=== PATIENT | male | born 1940 | race Caucasian/White ===

== ENCOUNTER 2017-07-20 13:12 | Inpatient (IN) | payer BC ==
[~2017-07-20] VITALS: Ht 180.3 cm; Wt 86.4 kg
[2017-07-20 14:48] LABS: Alanine Aminotransferase 20 U/L (16-61); Albumin 2.4 g/dL (3.4-5.0); Alkaline Phosphatase 66 U/L (45-117); Anion Gap 6 (5-15); Aspartate Aminotransferase 17 U/L (15-37); BUN/Creatinine Ratio 20.3; Bilirubin, Total < 0.1 mg/dL (0.2-1.0); Blood Urea Nitrogen 30 mg/dL (7-18); Calcium 8.2 mg/dL (8.5-10.1); Carbon Dioxide 25 mmol/L (21-32); Chloride 104 mmol/L (98-107); GFR African American 59 mL/min; GFR Non-African American 49 mL/min; Glucose 89 mg/dL (74-106); Potassium 4.4 mmol/L (3.5-5.1); Sodium 135 mmol/L (136-145); Total Protein 13.4 g/dL (6.4-8.2)
[2017-07-20 14:52] LABS: Platelet Count (auto) 192 10^3/uL (140-450)
[2017-07-20 14:54] LABS: Mean Corpuscular Hemoglobin 29.1 pg (28.0-32.0); Mean Corpuscular Hgb Conc. 33.4 g/dL (32.0-36.0); Mean Corpuscular Volume 87.2 fL (80.0-100.0); Red Blood Cells 2.75 10^6/uL (4.5-5.90); White Blood Cell 5.5 10^3/uL (4.4-10.8)
[2017-07-20 15:19] LABS: Band Neutrophils % (manual) 0; Basophils % (manual) 0 (0.0-2.0); Blast Cells 0; Metamyelocytes % 0; Myelocytes % 0; Promyelocytes % 0; Reactive Lymphocytes 0
[2017-07-20 15:49] LABS: Eosinophils % (manual) 1 (0-7); Lymphocytes % (manual) 43 (10.0-50.0); Monocytes % (manual) 12 (0-12)
[2017-07-20 19:50] VITALS: BP 115/62
[2017-07-20 20:05] VITALS: BP 121/65
[2017-07-20] MEDS ORDERED: ONDANSETRON HCL 4 MG/2 ML VIAL IV PRN (21:00)
[2017-07-20] MEDS ORDERED: TEMAZEPAM 15 MG CAP PO PRN (21:00)
[2017-07-20] MEDS ORDERED: HYDROcodone-ACET 5/325MG TAB PO PRN (21:00)
[2017-07-20] MEDS ORDERED: ACETAMINOPHEN 500 MG TAB PO PRN (21:00)
[2017-07-20] MEDS: TAMSULOSIN HYDROCHLORIDE 0.4 MG CAP PO SCH (21:11)
[2017-07-20 21:22] VITALS: BP 128/71
[2017-07-20 22:30] VITALS: BP 135/81
[2017-07-21] VITALS (7 sets, daily range): BP systolic 102–147; BP diastolic 50–81
[2017-07-21] MEDS ORDERED: FER325T PO (00:07)
[2017-07-21] MEDS ORDERED: MULTCAP45 PO (00:07)
[2017-07-21] MEDS ORDERED: TAM04C PO (00:07)
[2017-07-21 07:39] LABS: Hemoglobin 8.2 g/dL (13.5-17.5); Mean Corpuscular Volume 87.1 fL (80.0-100.0); White Blood Cell 4.1 10^3/uL (4.4-10.8)
[2017-07-21 07:41] LABS: Hematocrit 24.7 % (41.0-53.0); Mean Corpuscular Hemoglobin 28.9 pg (28.0-32.0); Mean Corpuscular Hgb Conc. 33.2 g/dL (32.0-36.0); Platelet Count (auto) 171 10^3/uL (140-450); Red Blood Cells 2.84 10^6/uL (4.5-5.90); Red Cell Distribution Width 15.4 % (11.8-14.3)
[2017-07-21 07:50] LABS: Calcium 7.9 mg/dL (8.5-10.1); Potassium 4.2 mmol/L (3.5-5.1)
[2017-07-21 07:54] LABS: Basophils % (manual) 0 (0.0-2.0); Blast Cells 0; Metamyelocytes % 0; Myelocytes % 0; Promyelocytes % 0; Reactive Lymphocytes 0
[2017-07-21 09:01] LABS: Band Neutrophils % (manual) 4; Lymphocytes % (manual) 45 (10.0-50.0); Monocytes % (manual) 13 (0-12)
[2017-07-21 09:02] LABS: Eosinophils % (manual) 3 (0-7)
[2017-07-21] MEDS: FERROUS SULFATE 325 MG TAB PO SCH ×2 (10:39→17:17)
[2017-07-21] MEDS: PANTOPRAZOLE 40 MG TAB PO SCH (10:39)
[2017-07-21] MEDS ORDERED: SODIUM CHLORIDE 0.9% 1,000 ML IV SCH (11:45)
[2017-07-21 13:03] LABS: Folate (Folic Acid) 23.85 ng/mL (5.38-24)
[2017-07-21 13:06] LABS: % Iron Saturation 77.9 % (20-55)
[2017-07-21] MEDS: TAMSULOSIN HYDROCHLORIDE 0.4 MG CAP PO SCH (17:17)
[2017-07-21 18:24] LABS: Basophils # (auto) 0 uL; Basophils % (auto) 1.1 % (0.0-2.0); Eosinophils # (auto) 0.2 uL; Eosinophils % (auto) 4.2 % (0.0-7.0); Hematocrit 25.8 % (41.0-53.0); Hemoglobin 8.5 g/dL (13.5-17.5); Lymphocytes # (auto) 2.1 uL; Lymphocytes % (auto) 47.4 % (10.0-50.0); Mean Corpuscular Hemoglobin 28.8 pg (28.0-32.0); Mean Corpuscular Hgb Conc. 32.8 g/dL (32.0-36.0); Mean Corpuscular Volume 87.7 fL (80.0-100.0); Monocytes # (auto) 0.5 uL; Monocytes % (auto) 11.3 % (0.0-12.0); Neutrophils # (auto) 1.6 uL; Nucleated Red Blood Cells % 0.6 %; Platelet Count (auto) 185 10^3/uL (140-450); Red Blood Cells 2.94 10^6/uL (4.5-5.90); Red Cell Distribution Width 15.8 % (11.8-14.3); White Blood Cell 4.3 10^3/uL (4.4-10.8)
[2017-07-21 18:27] LABS: INR 1.13 (0.9-1.15); Partial Thromboplastin Time 27.3 sec (22.64-33.71); Prothrombin Time 12.3 sec (9.37-12.3)
[2017-07-22 05:46] VITALS: BP 108/62
[2017-07-22 06:55] LABS: Basophils # (auto) 0.1 uL; Eosinophils # (auto) 0.2 uL; Lymphocytes # (auto) 1.9 uL; Monocytes # (auto) 0.6 uL; Neutrophils # (auto) 1.8 uL; White Blood Cell 4.5 10^3/uL (4.4-10.8)
[2017-07-22 06:58] LABS: Basophils % (auto) 1.8 % (0.0-2.0); Eosinophils % (auto) 3.6 % (0.0-7.0); Hematocrit 24.5 % (41.0-53.0); Hemoglobin 8.1 g/dL (13.5-17.5); Lymphocytes % (auto) 41.3 % (10.0-50.0); Mean Corpuscular Hgb Conc. 33.3 g/dL (32.0-36.0); Mean Corpuscular Volume 87.1 fL (80.0-100.0); Monocytes % (auto) 12.8 % (0.0-12.0); Neutrophils % (auto) 40.5 % (37.0-80.0); Nucleated Red Blood Cells % 0.3 %; Platelet Count (auto) 170 10^3/uL (140-450); Red Blood Cells 2.81 10^6/uL (4.5-5.90); Red Cell Distribution Width 15.6 % (11.8-14.3)
[2017-07-22 07:00] LABS: INR 1.14 (0.9-1.15); Partial Thromboplastin Time 26.5 sec (22.64-33.71); Prothrombin Time 12.4 sec (9.37-12.3)
[2017-07-22 07:05] LABS: BUN/Creatinine Ratio 18.5; Calcium 7.8 mg/dL (8.5-10.1); Magnesium 2.1 mg/dL (1.6-2.6); Potassium 4.1 mmol/L (3.5-5.1)
[2017-07-22] MEDS: FERROUS SULFATE 325 MG TAB PO SCH (07:45)
[2017-07-22 08:00] VITALS: BP 100/53
[2017-07-22 08:29] VITALS: BP 106/53
[2017-07-22] MEDS ORDERED: HYDROmorphone HCL 2 MG/ML VL IV PRN (08:45)
[2017-07-22] MEDS: PANTOPRAZOLE 40 MG TAB PO SCH (09:42)
[2017-07-22 13:00] VITALS: BP 114/61
[2017-07-22 16:11] VITALS: BP 114/61
[2017-07-23 10:02] LABS: Immunoglobulin G, Serum 6742 mg/dL (700-1600)
== END 2017-07-22 16:40 | disposition home health service (06) | DRG 841 ==
LOC: ER 13:22 → OVERFLOW 13:23 → CENTRAL 22:05
PROVIDERS: ADMIT Nurse Practitioner Family; ATTEND Internal Medicine
PROC: 30233N1 Transfusion of Nonautologous Red Blood Cells into Peripheral Vein, Percutaneous Approach (ICD-10-PCS; principal; 2017-07-20)
DX: C90.00 Multiple myeloma not having achieved remission (principal); N17.9 Acute kidney failure, unspecified; E87.1 Hypo-osmolality and hyponatremia; D64.9 Anemia, unspecified; D47.2 Monoclonal gammopathy; N40.0 Benign prostatic hyperplasia without lower urinary tract symptoms; N18.9 Chronic kidney disease, unspecified
CPT/HCPCS: 36415; 36430; 80048; 80053; 81479; 82232; 82607; 82746; 82784; 83010; 83540; 83550; 83615; 83735; 83883; 84443; 85007; 85025; 85027; 85045; 85097; 85610; 85652; 85730; 86334; 86335; 86850; 86880; 86900; 86901; 86920; 88185; 88291; 96360; J2405